=== PATIENT | male | born 2005 | race Caucasian/White ===

== ENCOUNTER → 2023-07-25 | Outpatient (CLI) | payer OTHER | LOC: M CARPUL 14:00 | PROVIDERS: ATTEND Physician Assistant | DX: R06.00 Dyspnea, unspecified (principal) ==

== ENCOUNTER → 2023-08-20 | Outpatient (CLI) | payer OTHER ==
[~2023-08-20] MED LIST: METHACHOLINE KIT INH ONE
== END ==
LOC: M CARPUL 12:29
PROVIDERS: ATTEND Physician Assistant
DX: R06.00 Dyspnea, unspecified (principal)
CPT/HCPCS: 94070; J7674

== ENCOUNTER 2023-12-31 13:17 | Emergency (ER) | payer OTHER ==
[2023-12-31] MEDS ORDERED: ERYT5OIN25 OS (18:00)
[2023-12-31 18:06] VITALS: BP 131/77; TEMP 97.5; O2SAT 100
== END 2023-12-31 18:08 | disposition home or self-care (01) ==
LOC: M ED 13:17
DX: H00.014 Hordeolum externum left upper eyelid (principal)

== ENCOUNTER 2024-05-26 13:37 | Emergency (ER) | payer OTHER ==
[~2024-05-26] VITALS: Ht 182.9 cm; Wt 73.1 kg
[~2024-05-26 13:37] MED LIST changes: +ERYT5OIN25 OS; -METHACHOLINE KIT INH ONE
[2024-05-26] MEDS ORDERED: ACET-683 PO (13:50)
[2024-05-26] MEDS ORDERED: THERPAK3 PO (13:50)
[2024-05-26 17:12] LABS: BASO # 0.1 10^3/uL (0.0-0.2); BASO % 0.7 % (0.0-1.0); EOS # 0.1 10^3/uL (0.0-0.5); EOS % 0.5 % (0.0-3.0); HEMATOCRIT 40.8 % (42.0-52.0); LYMPH # 2.8 10^3/uL (1.5-5.0); LYMPH % 20.5 % (24.0-44.0); MEAN CORPUSCULAR HEMOGLOBIN 30.6 pg (27.0-33.0); MEAN CORPUSCULAR HGB CONC 34.3 g/dl (32.0-36.5); MEAN CORPUSCULAR VOLUME 89.3 fl (80.0-96.0); MONO % 7.2 % (2.0-8.0); NEUTROPHILS # 9.4 10^3/uL (1.5-8.5); NEUTROPHILS % 70.2 % (36.0-66.0); PLATELET COUNT, AUTOMATED 382 10^3/uL (150-450); RED BLOOD COUNT 4.57 10^6/uL (4.30-6.10); WHITE BLOOD COUNT 13.4 10^3/uL (4.0-10.0)
[2024-05-26] MEDS: METOCLOPRAMIDE INJ 10MG/2ML VIAL IV ONE (17:13)
[2024-05-26] MEDS: KETOROLAC 30 MG/ML 1ML VIAL IV ONE (17:13)
[2024-05-26] MEDS: ACETAMINOPHEN 500 MG TAB PO ONE (17:14)
[2024-05-26] MEDS: NS 1,000 ML IV ONE (17:14)
[2024-05-26 17:41] LABS: MONO SCRN NEGATIVE (NEGATIVE)
[2024-05-26 17:42] LABS: BLOOD UREA NITROGEN 12 MG/DL (9-23); CALCIUM LEVEL 9.6 MG/DL (8.5-10.1); CARBON DIOXIDE LEVEL 26 MMOL/L (20-31); CHLORIDE LEVEL 100 MMOL/L (98-107); CREATININE FOR GFR 0.88 MG/DL (0.70-1.30); GLUCOSE, FASTING 94 MG/DL (60-100); POTASSIUM SERUM 4.4 MMOL/L (3.5-5.1); SODIUM LEVEL 135 MMOL/L (136-145)
[2024-05-26 17:49] LABS: ERYTHROCYTE SEDIMENTATION RATE 104 mm/hr (0-15)
[2024-05-26] MEDS ORDERED: ISOVUE-370 76% 100ML VIAL As Ordered ONE (18:11)
[2024-05-26] MEDS: dexAMETHasone 20MG/5ML VIAL IV ONE (18:19)
[2024-05-26] MEDS: AMPICILLIN SOD/SULBACTAM SOD 3 GM in D5W MINI-BAG PLUS 100 ML IV ONE (18:19)
[2024-05-26 19:30] VITALS: BP 123/59; TEMP 97.3; O2SAT 100
[2024-05-26] MEDS ORDERED: AMOX875T2 PO (20:03)
[2024-05-26] MEDS ORDERED: PRED20TA PO (20:03)
== END 2024-05-26 20:15 | disposition home or self-care (01) ==
LOC: M ED 13:37
DX: J03.90 Acute tonsillitis, unspecified (principal); J01.90 Acute sinusitis, unspecified; Z79.1 Long term (current) use of non-steroidal anti-inflammatories (NSAID); Z79.2 Long term (current) use of antibiotics; Z79.52 Long term (current) use of systemic steroids
CPT/HCPCS: 70491; 80048; 85025; 85652; 86140; 86308; 87486; 87581; 87633; 87798; 87880; 96365; 96374; 96375; 99284; J0295; J1100; J1885; J2765; Q9967